=== PATIENT | female | born 1990 | race Two or more races ===

== ENCOUNTER 2023-08-11 07:11 | Emergency (ER) | payer OTHER ==
[~2023-08-11] VITALS: Ht 154.9 cm; Wt 61.2 kg
[2023-08-11 08:10] LABS: HEMATOCRIT 35.8 % (36.0-45.00); HEMOGLOBIN 12.4 g/dL (12.0-15.00); MEAN CORPUSCULAR HEMOGLOBIN 30.3 pg (27.00-32.0); MEAN CORPUSCULAR HGB CONC 34.8 g/dl (32.0-36.0); PLATELET COUNT 243 K/uL (150-450); RED BLOOD COUNT 4.11 M/uL (4.00-6.00); RED CELL DISTRIBUTION WIDTH 12.9 % (11.5-14.5)
[2023-08-11 08:35] LABS: CREATININE SERUM 0.72 mg/dL (0.55-1.02); GFR 95.11; POTASSIUM 3.39 mEq/L (3.5-5.1)
[2023-08-11 09:41] LABS: PH,URINE 5.5 (5.0-8.0); URINE APPEARANCE Clear; URINE BILIRRUBIN Negative (NEGATIVE); URINE BLOOD Large; URINE COLOR Orange; URINE GLUCOSE Negative (NEGATIVE); URINE LEUKOCYTE Trace; URINE NITRATE Negative; URINE PROTEIN Trace (NEGATIVE); URINE UROBILINOGEN 0.2 E.U./dl
[2023-08-11 09:42] LABS: URINE BACTERIA 332.6 uL (0.0-1933); URINE EPITHELIAL CELLS 18.3 uL (0.0-38.8); URINE RBC 159.5 uL (0.0-20.8); URINE WBC 41.5 uL (0.0-23.2)
== END 2023-08-11 11:37 | disposition home or self-care (01) ==
LOC: ER 07:12
DX: N20.1 Calculus of ureter (principal)